=== PATIENT | male | born 1995 | race Caucasian/White ===

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

== ENCOUNTER → 2017-05-01 | Emergency (ER) | payer SELFPAY ==
[~2017-05-01] MED LIST changes: +AMOXICILLIN500 MG PO; +PEN-VEE K,VEET500 MG PO; +TYLENOL WITH C1 EACH PO; +ZOFRAN4 MG PO
== END | disposition left against medical advice (07) ==
LOC: EME 11:35
DX: K08.89 Other specified disorders of teeth and supporting structures (principal); Z53.21 Procedure and treatment not carried out due to patient leaving prior to being seen by health care provider

== ENCOUNTER 2017-05-02 05:34 | Emergency (ER) | payer SELFPAY ==
[~2017-05-02] VITALS: Ht 188 cm; Wt 80.6 kg
[~2017-05-02 05:34] MED LIST changes: -AMOXICILLIN500 MG PO; -ZOFRAN4 MG PO
[2017-05-02 07:34] LABS: EOSINOPHIL (%) 1.6 % (0-5); EOSINOPHIL COUNT 0.2 K/uL (0-0.3); IMMATURE GRANULOCYTE (%) 0.4 % (0.0-0.7); INSTRUMENT ABS NEUTROPHIL CT 8.1 K/uL; LYMPHOCYTE COUNT 1.5 K/uL (1.0-2.8); MCH 28.8 PG (29.0-34.0); MCHC 32.4 G/DL (30.0-36.0); MCV 88.8 FL (86-99); MEAN PLAT.VOLUME 9.6 uM^3 (9.0-12.4); MONOCYTE (%) 8.8 % (3-12); MONOCYTE COUNT 0.9 K/uL (0-0.8); NEUTROPHIL (%) 75.2 % (45-76); NEUTROPHIL COUNT 8.1 K/uL (1.8-6.4); PLATELET COUNT 225 K/uL (156-360); RBC DIS.WIDTH-CV 12.8 % (11.8-14.6); RBC DIS.WIDTH-SD 42.3 % (39-53); RED BLOOD COUNT 4.73 M/uL (4.00-5.50); WHITE BLOOD COUNT 10.7 K/uL (4.1-10.2)
[2017-05-02 07:37] LABS: ANION GAP 6 MEQ/L (2-14); CHLORIDE 108 MEQ/L (99-109); DIRECT BILIRUBIN 0.1 mg/dL (0.0-0.3); SAMPLE HEMOLYSIS CHECK 2; SAMPLE ICTERIC CHECK 0; SAMPLE LIPEMIA CHECK 0; SODIUM 141 MEQ/L (136-147); TOTAL BILIRUBIN 0.7 MG/DL (0.0-1.0)
[2017-05-02 07:43] LABS: ALKALINE PHOSPHATASE 54 IU/L (3-129); GFR ESTIMATE (CALCULATED) > 59 mL/min/; GLUCOSE 85 mg/dL (70-99); UREA NITROGEN (BUN) 10 mg/dL (9-23)
[2017-05-02] MEDS ORDERED: AMOXICILLIN500 MG PO (07:59)
[2017-05-02] MEDS ORDERED: ZOFRAN4 MG PO (07:59)
[2017-05-02] MEDS ORDERED: TYLENOL WITH C1 EACH PO (07:59)
[2017-05-02 08:30] VITALS: BP 111/78
== END 2017-05-02 09:00 | disposition home or self-care (01) ==
LOC: EME 05:34
PROVIDERS: Emergency Medicine
DX: K02.9 Dental caries, unspecified (principal); R11.2 Nausea with vomiting, unspecified; F17.200 Nicotine dependence, unspecified, uncomplicated
CPT/HCPCS: 80048; 80076; 85025; 99281; 99284; J1885; J2405; J7030

== ENCOUNTER 2018-05-03 06:40 | Emergency (ER) | payer SELFPAY ==
[~2018-05-03] VITALS: Ht 185.4 cm; Wt 89.7 kg
[~2018-05-03 06:40] MED LIST changes: +AMOXICILLIN500 MG PO; +ZOFRAN4 MG PO
[2018-05-03] MEDS ORDERED: MOBIC7.5 MG PO (09:01)
[2018-05-03 10:03] VITALS: BP 120/65
== END 2018-05-03 10:05 | disposition home or self-care (01) ==
LOC: EME 06:40
DX: S53.402A Unspecified sprain of left elbow, initial encounter (principal); S40.012A Contusion of left shoulder, initial encounter; Y09 Assault by unspecified means; W19.XXXA Unspecified fall, initial encounter; Y92.009 Unspecified place in unspecified non-institutional (private) residence as the place of occurrence of the external cause; Y07.9 Unspecified perpetrator of maltreatment and neglect
CPT/HCPCS: 73030; 73080; 73090; 99281; 99283